=== PATIENT | male | born 1960 | race Caucasian/White ===

== ENCOUNTER 2020-12-20 10:28 | Emergency (ER) | payer MEDICARE ==
[~2020-12-20] VITALS: Ht 182.9 cm; Wt 72.6 kg
[~2020-12-20 10:28] MED LIST: ASPI325 PO; CETI5 PO; METF500 PO; VENL75ER PO
[2020-12-20] MEDS ORDERED: HYDR1TAB94 PO (11:45)
== END 2020-12-20 11:49 | disposition home or self-care (01) ==
LOC: ER 10:28
DX: M79.652 Pain in left thigh (principal); Z79.82 Long term (current) use of aspirin; Z79.84 Long term (current) use of oral hypoglycemic drugs; Z79.899 Other long term (current) drug therapy; Z86.73 Personal history of transient ischemic attack (TIA), and cerebral infarction without residual deficits
CPT/HCPCS: 93971; 99283-25

== ENCOUNTER 2021-01-30 18:48 | Emergency (ER) | payer MEDICARE, OTHER | END 2021-01-30 21:04 | disposition left against medical advice (07) | LOC: ER 18:48 | DX: M54.5 Low back pain (principal); Z53.21 Procedure and treatment not carried out due to patient leaving prior to being seen by health care provider ==

== ENCOUNTER → 2021-10-27 | Outpatient (CLI) | payer MEDICARE, OTHER ==
[~2021-10-27] MED LIST changes: +HYDR1TAB94 PO
[2021-10-27 20:18] LABS: Microalb/Creat Ratio UR, Rand 4.341 mg/g (0.000-30.000); Microalbumin, Random Urine 5.34 mg/L (0.000-20.000)
== END | disposition home or self-care (01) ==
LOC: LAB SHORT 13:09
PROVIDERS: Physician Assistant
DX: E11.40 Type 2 diabetes mellitus with diabetic neuropathy, unspecified (principal)
CPT/HCPCS: 82043; 82570

== ENCOUNTER → 2023-02-05 | Outpatient (CLI) | payer MEDICARE, OTHER ==
[2023-02-05 21:36] LABS: Microalb/Creat Ratio UR, Rand 3.521 mg/g (0.000-30.000); Microalbumin, Random Urine 7.71 mg/L (0.000-20.000)
== END | disposition home or self-care (01) ==
LOC: LAB SHORT 12:53 → LAB 12:53
PROVIDERS: Physician Assistant
DX: E11.40 Type 2 diabetes mellitus with diabetic neuropathy, unspecified (principal)
CPT/HCPCS: 82043; 82570